=== PATIENT | female | born 1955 | race Caucasian/White ===

== ENCOUNTER 2017-04-26 08:09 | Day surgery (SDC) | payer BC ==
[~2017-04-26 08:09] MED LIST: Lactated Ringers 1,000 ML IV SCH; Lidocaine 1% 4 ML ONE; Lidocaine 1%/Sod Bicarbonate in NS 8.4% 1 ML Syringe IV PRN; Propofol 200 MG/20 ML SDV ONE; Sodium Chloride 0.9% 10 ML Syringe FLUSH PRN; fentaNYL 100 MCG/2 ML SDV ONE
--- NOTE | 2017-04-26 09:01 | PCM.PREANE ---
Preanesthetic Assessment - Anesthesia/Transfusion/Family Hx Anesthesia History: Prior Anesthesia Without Reaction Family History of Anesthesia Reaction: No Transfusion History: No Prior Transfusion(s) Intubation History: Unknown - Review of Systems General: No Symptoms Pulmonary: No Symptoms (smoker: less than 1 ppd times 30 years./quit March 27, 2017) Cardiovascular: No Symptoms Gastrointestinal: No Symptoms (GERD), Diarrhea Neurological: No Symptoms (History of MS/left side affected with some weakness noted more than the right. ), Headache (History of migraines), Tingling (noted in hands and feet) Other: Reports: Easy Bruising - Physical Assessment NPO Status Date: 04/25/17 NPO Status Time: 20:50 Pulse: 83 O2 Sat by Pulse Oximetry: 97 Respiratory Rate: 17 Blood Pressure: 112/67 Temperature: 36.6 C Vital Signs: Last Vital Signs Temp 36.6 C 04/26/17 08:16 Pulse 83 04/26/17 08:16 Resp 17 04/26/17 08:16 BP 112/67 04/26/17 08:16 Pulse Ox 97 04/26/17 08:16 Height: 1.6 m Weight: 63.957 kg ASA Class: 2 Mental Status: Alert & Oriented x3 Airway Class: Mallampati = 2 Dentition: Reports: Dentures (upper) Thyro-Mental Finger Breadths: 3 Mouth Opening Finger Breadths: 3 ROM/Head Extension: Full Lungs: Clear to Auscultation, Normal Respiratory Effort Cardiovascular: Regular Rate, Regular Rhythm, No Murmurs - Lab Values: Lab values reviewed and noted and within acceptable ranges to proceed with scheduled procedure. - Allergies Allergies/Adverse Reactions: Allergies Allergy/AdvReac Type Severity Reaction Status Date / Time bee venom protein (honey bee) Allergy Airway Verified 04/26/17 08:46 Tightness - Anesthesia Plan Pre-Op Medication Ordered: None - Acknowledgements Anesthesia Type Planned: MAC Pt an Appropriate Candidate for the Planned Anesthesia: Yes Alternatives and Risks of Anesthesia Discussed w Pt/Guardian: Yes Pt/Guardian Understands and Agrees with Anesthesia Plan: Yes PreAnesthesia Questionnaire HEENT History: Reports: Cataract, Impaired Vision, Other (See Below) Other HEENT History: wears glasses, has upper denture Cardiovascular History: Reports: None Respiratory History: Reports: Other (See Below) Other Respiratory History: cough Gastrointestinal History: Reports: Chronic Diarrhea, GERD Genitourinary History: Reports: None DERMATOPATHOLOGIST History: Reports: Other (See Below) Other OB/BYN History: atrophic vaginitis, dyspareunia Musculoskeletal History: Reports: None Neurological History: Reports: Headaches, Chronic, Migraines, MS Psychiatric History: Reports: Other (See Below) Other Psychiatric History: insomnia Endocrine/Metabolic History: Reports: None Hematologic History: Reports: None Immunologic History: Reports: None Oncologic (Cancer) History: Reports: None Dermatologic History: Reports: None - Past Surgical History Head Surgeries/Procedures: Reports: None HEENT Surgical History: Reports: Cataract Surgery Cardiovascular Surgical History: Reports: None GI Surgical History: Reports: Cholecystectomy Female Surgical History: Reports: None Male Surgical History: Reports: None Endocrine Surgical History: Reports: None Neurological Surgical History: Reports: None Musculoskeletal Surgical History: Reports: None Oncologic Surgical History: Reports: None Dermatological Surgical History: Reports: None - SUBSTANCE USE Smoking Status *Q: Current Some Day Smoker Recreational Drug Use History: No - HOME MEDS Home Medications: Home Meds Omeprazole 20 mg PO DAILY 03/09/17 [History] Loperamide [Imodium] 1 cap PO ASDIRECTED PRN 03/10/17 [History] Aspirin/Acetaminophen/Caffeine [Migraine Formula Caplet] 2 tab PO BID PRN [History] Cholecalciferol (Vitamin D3) [Vitamin D3] 5,000 unit PO DAILY 04/25/17 [History] Estradiol [Vagifem] 10 mcg VAG ASDIRECTED 04/25/17 [History] - CURRENT (IN HOUSE) MEDS Current Meds: Current Medications Lactated Ringer's (Ringers, Lactated) 1,000 mls @ 125 mls/hr IV ASDIRECTED CALEB Stop: 04/26/17 23:00 Last Admin: 04/26/17 08:30 Dose: 125 mls/hr Lidocaine/Sodium Bicarbonate (Buffered Lidocaine 1% In Ns 8.4%) 0.25 ml IV ONETIME PRN PRN Reason: Prior to IV Start Stop: 04/26/17 18:00 Sodium Chloride (Saline Flush) 10 ml FLUSH ASDIRECTED PRN PRN Reason: Keep Vein Open Stop: 04/26/17 18:00 Discontinued Medications Fentanyl (Sublimaze) Confirm Administered Dose 100 mcg .ROUTE .STK-MED ONE Stop: 04/26/17 07:13 Lidocaine HCl (Xylocaine-Mpf 1%) Confirm Administered Dose 4 mls @ as directed .ROUTE .STK-MED ONE Stop: 04/26/17 07:13 Propofol (Diprivan 20 Ml) Confirm Administered Dose 200 mg .ROUTE .STK-MED ONE Stop: 04/26/17 07:13
--- NOTE | 2017-04-26 09:45 | PCM48HPAN ---
Post Anesthesia Note - EVALUATION WITHIN 48HRS OF ANESTHETIC Vital Signs in Normal Range: Yes Patient Participated in Evaluation: Yes Respiratory Function Stable: Yes Airway Patent: Yes Cardiovascular Function Stable: Yes Hydration Status Stable: Yes Pain Control Satisfactory: Yes Nausea and Vomiting Control Satisfactory: Yes Mental Status Recovered: Yes
--- NOTE | 2017-04-26 09:48 | PCM.OPNOTE ---
- General Post-Op/Procedure Note Date of Surgery/Procedure: 04/26/17 Operative Procedure(s): Colonoscopy with cold forceps biopsy of the cecum right colon left colon and rectum. Sigmoid polypectomy 2 with cold forceps Findings: 1. Anal tag 2. 2 diminutive sigmoid polyps 3. Mild edema of the rectum Pre Op Diagnosis: Chronic diarrhea of unknown etiology Post-Op Diagnosis: 1. Anal tags. 2. 2 sigmoid polyps. 3. Possible endoscopic proctitis Anesthesia Technique: MAC, Moderate Sedation Primary Surgeon: Sami Samayoa Pathology: Cecal biopsy, right colon biopsy, descending colon biopsy, sigmoid polyps, and rectal biopsy. EBL in mLs: 0 Complications: None Condition: Good Free Text/Narrative:: After adequate IV sedation and analgesia was obtained with monitoring the patient was placed on her left side. Perianal inspection revealed the anal tags. Digital rectal examination was normal. A lubricated colonoscope was inserted into the rectum and advanced through a tortuous sigmoid to the cecum. The bowel preparation was adequate. I spent 5 additional minutes trying to fully intubate the terminal ileum but was unsuccessful. I was able to get a brief review and it appeared to be grossly normal. A cecal biopsy was taken for histologic review given her history. The cecum was otherwise unremarkable. The right colon was also unremarkable but I took a random biopsy in this area as well. The transverse and descending colons were endoscopically normal with no inflammatory changes or mass lesions. A random biopsy was taken in this area. The sigmoid was tortuous with hypertrophied smooth muscle. 2 diminutive polyps located in the distal sigmoid were removed with cold forceps. The rectum was unremarkable in both views and I took 2 biopsies here for histologic evaluation given her history. Photographs were taken for the patient and for the medical record. Air was removed as I finished the procedure which she tolerated well.
== END 2017-04-26 10:32 | disposition home or self-care (01) ==
LOC: JD.SDS 08:09
PROVIDERS: ATTEND Surgery
DX: K63.5 Polyp of colon (principal); K62.89 Other specified diseases of anus and rectum; K64.4 Residual hemorrhoidal skin tags; N95.2 Postmenopausal atrophic vaginitis; N94.10 Unspecified dyspareunia; G47.00 Insomnia, unspecified; G43.909 Migraine, unspecified, not intractable, without status migrainosus; G35 Multiple sclerosis; K21.9 Gastro-esophageal reflux disease without esophagitis; Z91.030 Bee allergy status; Z79.899 Other long term (current) drug therapy; Z87.891 Personal history of nicotine dependence; Z90.49 Acquired absence of other specified parts of digestive tract
CPT/HCPCS: 45380; J3010; J7120; 00811; J2001; J2704